=== PATIENT | female | born 1995 ===

== ENCOUNTER 2017-07-24 19:24 | Emergency (ER) | payer OTHER ==
[~2017-07-24] VITALS: Ht 167.6 cm; Wt 69.4 kg
[2017-07-24 19:34] VITALS: TEMP 36.9; Ht 167.6 cm; Wt 69.4 kg
[2017-07-24] MEDS ORDERED: SODIUM CHLORIDE 0.9% 1000ML 1,000 ML IV ONE (20:05)
[2017-07-24] MEDS ORDERED: ONDANSETRON INJ 2 MG/ML 2 ML VIAL IV STA (20:05)
[2017-07-24] MEDS ORDERED: SODIUM CHLORIDE 0.9% 1000ML 1,000 ML IV STA (20:05)
[2017-07-24] MEDS ORDERED: MoRPHine SULFATE 4 MG/ML 1 ML CARP\\VIAL IV STA (20:05)
--- NOTE | 2017-07-24 20:11 | EMERGENCY ROOM VISIT NOTE ---
History Report prepared by Sameer: Estephania Gibosn Under the Supervision of: Dr. Blas Conde M.D. First contact with patient: 19:57 Chief Complaint: ABDOMINAL PAIN Stated Complaint: ABDOMINAL PAIN, S/P CHILD Nursing Triage Summary: pt states "I had a baby in february, now i have severe abdominal pain and profuse bleeding." pt c/o abd pain and vaginal bleeding, reports bleeding began this AM. " History of Present Illness The patient is a 22 year old female who presents to the Emergency Room with complaints of constant severe lower abdominal pain beginning this morning. The patient gave in February and has had her period since. She is having vaginal bleeding now and notes clots in her blood. The patient stopped breast feeding in June. She denies any fever or burning when she urinates. The patient has a history of a left hemorrhagic ovarian cyst in 2014. The patient was in [place] in May, no sick contacts. Source of History: patient, friend Onset: this morning Position: abdomen Symptom Intensity: severe Timing: constant Associated Symptoms: No fevers, No urinary symptoms Note: Pt notes vaginal bleeding. Review of Systems See HPI for pertinent positives & negatives. A total of 10 systems reviewed and were otherwise negative. Past Medical & Surgical Medical Problems: (1) Hemorrhagic ovarian cyst Old medical records were reviewed. Nurse's notes were reviewed and I agree with. Family History No pertinent family history stated. Social History Smoking Status: Never Smoker Alcohol Use: none Occupation Status: [employer] student Current/Historical Medications Scheduled Acetaminophen (Tylenol), 500 MG PO PRN UD Allergies Coded Allergies: No Known Allergies (Unverified , 07/24/17) Physical Exam Vital Signs Date Time Temp Pulse Resp B/P (MAP) Pulse Ox O2 Delivery O2 Flow Rate FiO2 07/25/17 00:14 81 18 94/74 99 07/24/17 23:04 88 18 110/72 98 Room Air 07/24/17 20:10 94 108/67 98 Room Air 07/24/17 19:34 36.9 87 18 119/79 97 Room Air Physical Exam General: Mildly uncomfortable appearing young female in no acute distress, breathing comfortably on room air. Normal speech HEENT: Normal cephalic atraumatic. Pupils are equal round and reactive to light. Extraocular movements are intact. Oropharynx is pink with moist mucous membranes. No swelling of the mouth lips or tongue. Neck: Supple with a midline trachea. No meningeal signs or stiffness, no JVD or bruits. No Stridor. Chest: Clear to auscultation bilaterally. No wheezes or rhonchi. No increased work of breathing. Heart: regular rate and rhythm. Abdomen: Minimal tenderness in lower abdomen, nondistended without rebound guarding or rigidity. Extremities: No cyanosis clubbing or edema. No calf tenderness or assymetry Spine/Back. Non tender to palpation. No CVA tenderness Skin: Good turgor without rashes. Neurologic exam: Cranial nerves two through 12 are intact. Motor and sensation are intact and symmetrical throughout. Medical Decision & Procedures ER Provider Diagnostic Interpretation: Radiology results as stated below per my review and radiologist interpretation: US PELVIC/ENDOVAG: Endometrium measures 9 mm. No complex adnexal lesions or torsion. Trace fluid in the pelvis. Radiologist: Eliza Olguin Laboratory Results 07/24/17 20:00 Red Blood Count 4.38, Mean Corpuscular Volume 87.7, Mean Corpuscular Hemoglobin 29.5, Mean Corpuscular Hemoglobin Concent 33.6, Mean Platelet Volume 10.7, Neutrophils (%) (Auto) 47.6, Lymphocytes (%) (Auto) 44.2, Monocytes (%) (Auto) 6.6, Eosinophils (%) (Auto) 1.2, Basophils (%) (Auto) 0.2, Neutrophils # (Auto) 4.44, Lymphocytes # (Auto) 4.13, Monocytes # (Auto) 0.62, Eosinophils # (Auto) 0.11, Basophils # (Auto) 0.02 07/24/17 20:00 Test 07/24/17 20:00 White Blood Count 9.34 K/uL (4.8-10.8) Red Blood Count 4.38 M/uL (4.2-5.4) Hemoglobin 12.9 g/dL (12.0-16.0) Hematocrit 38.4 % (37-47) Mean Corpuscular Volume 87.7 fL (80-100) Mean Corpuscular Hemoglobin 29.5 pg (25-34) Mean Corpuscular Hemoglobin Concent 33.6 g/dl (32-36) Platelet Count 242 K/uL (130-400) Mean Platelet Volume 10.7 fL (7.4-10.4) Neutrophils (%) (Auto) 47.6 % Lymphocytes (%) (Auto) 44.2 % Monocytes (%) (Auto) 6.6 % Eosinophils (%) (Auto) 1.2 % Basophils (%) (Auto) 0.2 % Neutrophils # (Auto) 4.44 K/uL (1.4-6.5) Lymphocytes # (Auto) 4.13 K/uL (1.2-3.4) Monocytes # (Auto) 0.62 K/uL (0.11-0.59) Eosinophils # (Auto) 0.11 K/uL (0-0.5) Basophils # (Auto) 0.02 K/uL (0-0.2) RDW Standard Deviation 40.0 fL (36.4-46.3) RDW Coefficient of Variation 12.5 % (11.5-14.5) Immature Granulocyte % (Auto) 0.2 % Immature Granulocyte # (Auto) 0.02 K/uL (0.00-0.02) Urine Color RED Urine Appearance SLIGHTLY CLOUDY (CLEAR) Urine pH 7.5 (4.5-7.5) Urine Specific [place] 1.010 (1.000-1.030) Urine Protein NEG (NEG) Urine Glucose (UA) NEG (NEG) Urine Ketones NEG (NEG) Urine Occult Blood 2+ (NEG) Urine Nitrite NEG (NEG) Urine Bilirubin NEG (NEG) Urine Urobilinogen NEG (NEG) Urine Leukocyte Esterase MODERATE (NEG) Urine WBC (Auto) 10-30 /hpf (0-5) Urine RBC (Auto) >30 /hpf (0-4) Urine Hyaline Casts (Auto) 1-5 /lpf (0-5) Urine Epithelial Cells (Auto) 20-30 /lpf (0-5) Urine Bacteria (Auto) NEG (NEG) Anion Gap 6.0 mmol/L (3-11) Est Creatinine Clear Calc Drug Dose 122.4 ml/min Estimated GFR () 144.9 Estimated GFR (Non- 125.0 BUN/Creatinine Ratio 11.3 (10-20) Calcium Level 10.0 mg/dl (8.5-10.1) Total Bilirubin 0.3 mg/dl (0.2-1) Direct Bilirubin mg/dl (0-0.2) Aspartate Amino Transf (AST/SGOT) U/L (15-37) Alanine Aminotransferase (ALT/SGPT) 23 U/L (12-78) Alkaline Phosphatase 90 U/L (45-117) Total Protein 8.3 gm/dl (6.4-8.2) Albumin 4.1 gm/dl (3.4-5.0) Lipase 105 U/L (73-393) Human Chorionic Gonadotropin, Qual NEG (NEG) Laboratory studies as stated above per my review. Medications Administered Medications (Trade) Dose Ordered Sig/Becca Route Start Time Stop Time Status Last Admin Dose Admin Sodium Chloride 1,000 ml @ 999 mls/hr Q1H1M STAT IV 07/24/17 20:05 07/24/17 21:05 DC 07/24/17 20:28 999 MLS/HR Sodium Chloride 1,000 ml @ 150 mls/hr Q6H40M ONCE IV 07/24/17 20:05 07/25/17 02:44 07/24/17 20:28 150 MLS/HR Morphine Sulfate (MoRPHine SULFATE INJ) 4 mg NOW STAT IV 07/24/17 20:05 07/24/17 20:06 DC 07/24/17 20:27 4 MG Ondansetron HCl (Zofran Inj) 4 mg NOW STAT IV 07/24/17 20:05 07/24/17 20:06 DC 07/24/17 20:28 4 MG ED Course 1957: Past medical records reviewed. The patient was evaluated in room C11B, and a complete history and physical examination were performed. 2005: Zofran Inj 4 mg IV, Morphine Sulfate 4 mg IV. 2005: Sodium Chloride 1000 ml @ 150 mls/hr IV, Sodium Chloride 1000 ml @ 999 mls /hr IV. 2354: Upon reevaluation, the patient is resting. I discussed the results and treatment plan with her. She verbalized agreement of the treatment plan. The patient was discharged home. Medical Decision Differential diagnosis includes but is not limited to: vaginal bleeding, ectopic , infection, abdominal cramps, and electrolyte metabolic abnormality. This patient comes in as described above she has lower abdominal cramping and vaginal bleeding. She gave about 5 months ago. She's had no fever or chills or dysuria. no trauma. IV access established and she was given IV morphine and IV Zofran and felt better and had no further problems and felt better. test is negative. Urinalysis does not suggest UTI but she has of blood in her urine which is likely from her menstrual period. Ultrasound was unremarkable. she's had no acute electrolyte or metabolic abnormalities. She declined a pelvic exam and I do not think is likely change will be do tonight at this point. She's had no recent discharge. This may be related to her menstrual.. I will have her use ibuprofen and [id number] dosages recommend she follow the [facility]/laser/electro optics technician in the next couple days for recheck. return ER if: increasing pain, worsening of symptoms, increasing pain or bleeding, any new problems or concerns. Medication Reconcilliation Current Medication List: was personally reviewed by me Blood Pressure Screening Patient's blood pressure: Normal blood pressure Impression Primary Impression: Lower abdominal pain Additional Impression: Vaginal bleeding Scribe Attestation The scribe's documentation has been prepared under my direction and personally reviewed by me in its entirety. I confirm that the note above accurately reflects all work, treatment, procedures, and medical decision making performed by me. Departure Information Dispostion Home / Self-Care Forms Call Back Authorization, HOME CARE DOCUMENTATION FORM, IMPORTANT VISIT INFORMATION Patient Instructions [facility] Additional Instructions Rest Drink plenty of fluids Return if: worsening of symptoms, increasing pain, fever, any new problems or concerns Use Ibuprofen 400 mg every 6 hours as needed, take food Follow-up with your doctor/laser/electro optics technician this week for recheck Problem Qualifiers
[2017-07-24] MEDS ORDERED: ACET-1256 PO (20:18)
[2017-07-24 20:24] LABS: BASO % 0.2 %; BASO ABS # 0.02 K/uL (0-0.2); COMPLETE YES; EOS % 1.2 %; HEMATOCRIT 38.4 % (37-47); IG% 0.2 %; LYMPH % 44.2 %; LYMPH ABS # 4.13 K/uL (1.2-3.4); MEAN CELL VOLUME 87.7 fL (80-100); MEAN CORPUSCULAR HEMOGLOBIN 29.5 pg (25-34); MEAN CORPUSCULAR HGB CONC 33.6 g/dl (32-36); MEAN PLATELET VOLUME 10.7 fL (7.4-10.4); MONO % 6.6 %; NEUT % 47.6 %; PLATELET COUNT 242 K/uL (130-400); RED BLOOD COUNT 4.38 M/uL (4.2-5.4); WHITE BLOOD COUNT 9.34 K/uL (4.8-10.8)
[2017-07-24 20:44] LABS: PREG INTERNAL NEGATIVE QC NEG CLEAR BACKGROUND; PREG INTERNAL POSITIVE QC POS CONTROL LINE
[2017-07-24 20:51] LABS: URINE BILIRUBIN NEG (NEG); URINE EPITHELIAL CELL AUTO 20-30 /lpf (0-5); URINE NITRITE NEG (NEG); URINE PH 7.5 (4.5-7.5); UROBILINOGEN NEG (NEG)
[2017-07-24 20:52] LABS: MANUAL MICROSCOPIC REQUIRED? NO; REVIEW REQ? NO
[2017-07-24 20:53] LABS: URINE APPEARANCE SLIGHTLY CLOUDY (CLEAR); URINE COLOR RED
[2017-07-24 21:01] LABS: SULFASALICYLIC ACID NEG (NEG)
[2017-07-24 21:04] LABS: ALKALINE PHOSPHATASE 90 U/L (45-117); ALT/SGPT 23 U/L (12-78); BLOOD UREA NITROGEN 8 mg/dl (7-18); BUN/CREATININE RATIO 11.3 (10-20); CARBON DIOXIDE 25 mmol/L (21-32); CHLORIDE 107 mmol/L (98-107); CREATININE 0.68 mg/dl (0.60-1.20); GLUCOSE 86 mg/dl (70-99); SODIUM 138 mmol/L (136-145)
[2017-07-25 00:14] VITALS: BP 94/74; PULSE 81; O2SAT 99
--- NOTE | 2017-07-25 06:36 | DIAGNOSTIC IMAGING REPORT ---
PELVIC COMPLETE NON OB CLINICAL HISTORY: eval for lower abd pain and vag bleeding PAIN. NAUSEA. COMPARISON STUDY: None FINDINGS: The uterus measured 8.5 cm.. The endometrial stripe measured 3 mm. The right ovary measured 4.0 cm with normal vascular flow. The left ovary measured 3.3 cm with normal vascular flow. There is no ultrasonographic evidence of ovarian torsion. It should be noted that ovarian torsion can be present with normal Doppler ultrasonographic findings. Trace free fluid IMPRESSION: Negative pelvic ultrasound The above report was generated using voice recognition software. It may contain grammatical, syntax or spelling errors. Electronically signed by: Eliel Armstrong M.D. 07/25/2017 6:35 AM Dictated Date/Time: 07/25/2017 6:33 AM
== END 2017-07-25 00:15 | disposition home or self-care (01) ==
LOC: C.EDB 19:26 → C.EDC 07-25 00:15
DX: R10.30 Lower abdominal pain, unspecified (principal); N93.8 Other specified abnormal uterine and vaginal bleeding; N83.209 Unspecified ovarian cyst, unspecified side